=== PATIENT | female | born 1970 | race Caucasian/White ===

== ENCOUNTER 2020-11-01 10:49 | Emergency (ER) | payer OTHER ==
[2020-11-01 10:55] VITALS: RESP 18; TEMP 98.3
[2020-11-01] MEDS ORDERED: ORPHENADRINE 30 MG/ML 2 ML VIAL IM STA (11:08)
[2020-11-01] MEDS ORDERED: KETOROLAC 15 MG/ML 1 ML VIAL IM STA (11:08)
--- NOTE | 2020-11-01 11:13 | ED ---
General Adult HPI - General Chief complaint: Back Pain/Injury Stated complaint: Back injury Time Seen by Provider: 11/01/20 10:57 Source: patient, RN notes reviewed Mode of arrival: ambulatory Limitations: no limitations - History of Present Illness Initial comments: 50-year-old female presents to the emergency room for upper back pain. She reports this is been ongoing for about 5 days. Patient reports that she was doing drywall last week when it started. States she was reaching up and felt a sudden pain in her back. Patient reports she has had this pain "a million times" but usually only lasts for 2-3 days. She reports this time it has lasted for 5 days. Patient has been applying warm compresses. She has also taken some Motrin and Tylenol however has not taken this regularly. She reports that movement and bending makes this pain worse. She denies any pain radiating to her chest or abdomen or arms.Patient has no other complaints at this time including shortness of breath, chest pain, abdominal pain, nausea or vomiting, headache, or visual changes. - Related Data Previous Rx's Medication Instructions Recorded Lidocaine 5% Patch [Lidoderm 5% 1 patch TOPICAL DAILY PRN 5 Days 11/01/20 Patch] #5 patch Allergies Allergy/AdvReac Type Severity Reaction Status Date / Time No Known Allergies Allergy Verified 11/01/20 12:00 Review of Systems ROS Statement: Those systems with pertinent positive or pertinent negative responses have been documented in the HPI. ROS Other: All systems not noted in ROS Statement are negative. Past Medical History Past Medical History: No Reported History History of Any Multi-Drug Resistant Organisms: None Reported Past Surgical History: No Surgical Hx Reported Past Psychological History: No Psychological Hx Reported Smoking Status: Current every day smoker Past Alcohol Use History: Occasional Past Drug Use History: None Reported General Exam Limitations: no limitations General appearance: alert, in no apparent distress Head exam: Present: atraumatic, normocephalic, normal inspection Eye exam: Present: normal appearance, PERRL, EOMI. Absent: scleral icterus, conjunctival injection, periorbital swelling ENT exam: Present: normal exam, mucous membranes moist Neck exam: Present: normal inspection, full ROM. Absent: tenderness, meningismus, lymphadenopathy Respiratory exam: Present: normal lung sounds bilaterally. Absent: respiratory distress, wheezes, rales, rhonchi, stridor Cardiovascular Exam: Present: regular rate, normal rhythm, normal heart sounds. Absent: systolic murmur, diastolic murmur, rubs, gallop, clicks GI/Abdominal exam: Present: soft, normal bowel sounds. Absent: distended, tenderness, guarding, rebound, rigid Extremities exam: Present: other (radial pulses 2+ and equal bilaterally) Back exam: Present: vertebral tenderness (mild thoracic spine tenderness and pasaspinal tenderness worse on the right). Absent: CVA tenderness (R), CVA tenderness (L) Course Vital Signs 11/01/20 11/01/20 10:51 12:13 Temperature 98.3 F Pulse Rate 90 78 Respiratory 18 18 Rate Blood Pressure 123/83 123/88 O2 Sat by Pulse 97 100 Oximetry EKG Findings - EKG Comments: EKG Findings:: Normal sinus rhythm, ventricular rate 76, KS interval 140, QTC 409 Medical Decision Making - Medical Decision Making Vitals are stable. Patient has normal blood pressure. Pain is consistent with previous episodes of upper back pain. Pain is traumatic from reaching for drywall. It is reproducible on exam with tenderness and worsening pain with movement. She has no associated chest or abdominal pain. No other associated symptoms. Chest x-ray shows no acute cardiopulmonary process. EKG is nonischemic. He was given pain medication and did have some improvement in pain. She was offered additional pain medication but declined. She will be discharged home with Tylenol 3. I recommended she follow up with orthopedics. She should return here for any worsening symptoms.I discussed this case with attending Dr. Houser who agrees with this assessment and treatment plan. Disposition Clinical Impression: Mechanical back pain Disposition: HOME SELF-CARE Condition: Good Instructions (If sedation given, give patient instructions): Back Pain (ED) Additional Instructions: Please take Motrin and Tylenol for pain. You may alternate these every 3 hours. If pain is severe take Tylenol 3. Do not drive or operate machinery while taking this. Follow up with your doctor or orthopedics in one to 2 days. If you have any worsening symptoms return to the emergency room. Prescriptions: Lidocaine 5% Patch [Lidoderm 5% Patch] 1 patch TOPICAL DAILY PRN 5 Days #5 patch PRN Reason: Pain Is patient prescribed a controlled substance at d/c from ED?: No Referrals: Mason Zhu MD [STAFF PHYSICIAN] - 1-2 days Time of Disposition: 12:36
--- NOTE | 2020-11-01 11:47 | XR ---
EXAMINATION TYPE: XR chest 2V DATE OF EXAM: 11/01/2020 COMPARISON: NONE HISTORY: Back strain and pain after injury. TECHNIQUE: Frontal and lateral views of the chest are obtained. FINDINGS: There is no focal air space opacity, pleural effusion, or pneumothorax seen. The cardiac silhouette size is within normal limits. The osseous structures are intact. IMPRESSION: No acute cardiopulmonary process.
[2020-11-01 12:14] VITALS: BP 123/88; PULSE 78
[2020-11-01] MEDS ORDERED: ACET/COD 300 MG/30 MG STARTER PACK 6 TAB BTL PO STA (12:37)
== END 2020-11-01 12:46 | disposition home or self-care (01) ==
LOC: EC 10:49
DX: M54.9 Dorsalgia, unspecified (principal); F17.200 Nicotine dependence, unspecified, uncomplicated
CPT/HCPCS: 71046; 93005; 96372; 99283

== ENCOUNTER 2021-06-22 16:23 | Emergency (ER) | payer OTHER ==
[2021-06-22 16:39] VITALS: RESP 18; TEMP 97.8
[2021-06-22 17:20] LABS: Appearance,Urine Clear (Clear); Bacteria,Urine Rare /hpf; Bilirubin,Urine Negative (Negative); Blood,Urine Negative (Negative); Color,Urine Yellow; Glucose,Urine (UA) Negative (Negative); Hyaline Casts,Urine 3 /lpf (0-2); Ketones,Urine 2+ (Negative); Leukocyte Esterase,Urine Small (Negative); Mucus,Urine Moderate /hpf; Nitrite,Urine Negative (Negative); PH, Urine 5.5 (5.0-8.0); Protein,Urine Trace (Negative); RBC,Urine 6 /hpf (0-5); Specific Gravity,Urine 1.028 (1.001-1.035); Squamous Epithelial Cell,Urine 3 /hpf (0-4); WBC,Urine 3 /hpf (0-5)
[2021-06-22] MEDS: SODIUM CHLORIDE 0.9% 1,000 ML IV ONE (17:44)
[2021-06-22] MEDS: KETOROLAC 15 MG/ML 1 ML VIAL IVP STA (17:46)
[2021-06-22] MEDS: ONDANSETRON 4 MG/2 ML VIAL IVP STA (17:47)
[2021-06-22 18:35] LABS: ALT 14 U/L (4-34); AST 28 U/L (14-36); African American GFR (CKD) >90 (>60 ml/min/1.73 sqM); Albumin 4.3 g/dL (3.5-5.0); Alkaline Phosphatase 136 U/L (38-126); Anion Gap 10 mmol/L; Blood Urea Nitrogen 22 mg/dL (7-17); Carbon Dioxide 21 mmol/L (22-30); Chloride 104 mmol/L (98-107); Glucose 86 mg/dL (74-99); Lipase 82 U/L (23-300); Non-African American GFR(CKD) >90 (>60 ml/min/1.73 sqM); Potassium 4.6 mmol/L (3.5-5.1); Sodium 135 mmol/L (137-145); Total Bilirubin 0.5 mg/dL (0.2-1.3); Total Protein 7.1 g/dL (6.3-8.2)
[2021-06-22 18:41] LABS: Basophils # (A) 0.1 k/uL (0-0.2); Basophils % (A) 1 %; Eosinophils # (A) 0.4 k/uL (0-0.7); Eosinophils % (A) 4 %; HCT 42.2 % (34.0-46.0); HGB 14.5 gm/dL (11.4-16.0); Lymphocytes # (A) 1.1 k/uL (1.0-4.8); Lymphocytes % (A) 13 %; MCH 35.2 pg (25.0-35.0); MCHC 34.2 g/dL (31.0-37.0); MCV 102.7 fL (80.0-100.0); Macrocytosis Slight; Mean Platelet Volume 7.8; Monocytes # (A) 0.4 k/uL (0-1.0); Monocytes % (A) 4 %; Neutrophils # (A) 6.5 k/uL (1.3-7.7); Neutrophils % (A) 76 %; Platelet Count 380 k/uL (150-450); RBC 4.11 m/uL (3.80-5.40); RDW 13.8 % (11.5-15.5); WBC 8.5 k/uL (3.8-10.6)
--- NOTE | 2021-06-22 19:07 | US ---
EXAMINATION TYPE: US gallbladder DATE OF EXAM: 06/22/2021 COMPARISON: NONE CLINICAL HISTORY: ruq ab pain. EXAM MEASUREMENTS: Liver Length: 16.0 cm Gallbladder Wall: 0.2 cm CBD: 0.4 cm Right Kidney: 10.7 x 4.7 x 5.3 cm Pancreas: wnl Liver: wnl Gallbladder: wnl Evidence for sonographic Wilson's sign: No CBD: wnl Right Kidney: No hydronephrosis or masses seen IMPRESSION: Negative exam. No gallstones or dilated ducts.
[2021-06-22 19:14] VITALS: BP 116/78; PULSE 61
--- NOTE | 2021-06-22 19:26 | ED ---
Abdominal Pain HPI - General Chief Complaint: Abdominal Pain Stated Complaint: abd pain Source: patient Mode of arrival: ambulatory Limitations: no limitations - History of Present Illness Initial Comments: Patient is a 51-year-old female who presents emergency Department with reported abdominal pain. Patient states the pain has been going on for the past couple of weeks. It is located in the epigastric region and appears to be exacerbated by food intake. Describes it as a burning sensation. She has had associated nausea and vomiting. Reports it has been difficult to hold down any food or water, especially today. Denies any previous history of similar. No bloody em esis. Denies fevers or chills. No cough, shortness of breath or exposure to Covid. No previous abdominal surgeries. Denies eating any tainted foods. No sick contacts with similar symptoms. Denies any chest pain. No diarrhea, constipation, black or bloody stools. No changes in her urination to include dysuria, hematuria or difficulty voiding. Continues to have menstrual cycles. No abnormal vaginal bleeding or discharge. No concern for . She took Aleve for her pain. Reports that she frequently takes [id number] NSAIDs for pain. Denies alcohol use. No history of peptic ulcer disease. No other alleviating, precipitating or modifying factors - Related Data Previous Rx's Medication Instructions Recorded Lidocaine 5% Patch [Lidoderm 5% 1 patch TOPICAL DAILY PRN 5 Days 11/01/20 Patch] #5 patch Omeprazole [PriLOSEC] 20 mg PO AC-BRKFST #30 cap 06/22/21 Ondansetron Odt [Zofran Odt] 4 mg PO Q8HR PRN #15 tab 06/22/21 Sucralfate [Carafate] 1 gm PO ACHS #56 tablet 06/22/21 Allergies Allergy/AdvReac Type Severity Reaction Status Date / Time No Known Allergies Allergy Verified 06/22/21 16:38 Review of Systems ROS Statement: Those systems with pertinent positive or pertinent negative responses have been documented in the HPI. ROS Other: All systems not noted in ROS Statement are negative. Past Medical History Past Medical History: No Reported History History of Any Multi-Drug Resistant Organisms: None Reported Past Surgical History: No Surgical Hx Reported Past Psychological History: No Psychological Hx Reported Smoking Status: Current every day smoker Past Alcohol Use History: Occasional Past Drug Use History: None Reported General Exam Limitations: no limitations Course Vital Signs 06/22/21 06/22/21 06/22/21 16:26 17:49 19:00 Temperature 97.8 F Pulse Rate 75 65 61 Respiratory 18 18 18 Rate Blood Pressure 113/73 103/71 116/78 O2 Sat by Pulse 100 99 100 Oximetry Medical Decision Making - Medical Decision Making Upon arrival patient is placed in room 23. A thorough history and physical exam is performed. IV is established and the patient is given 1 here bolus of normal saline, 4 mg of Zofran and 15 mg of Toradol. Laboratory studies are conducted an ultrasound is performed. Laboratory studies are reviewed and results are discussed with the patient. Gallbladder ultrasound is negative for signs of cholecystitis or cholelithiasis. I did discuss diagnosis, differential and treatment options. I will start the patient on Prilosec, Carafate and Zofran. Patient is to take the medications as directed and follow-up with her primary care doctor. The patient does not have a primary care doctor and therefore I do give her several recommendations. I also recommended that she call her insurance company for referrals. Patient may benefit from a HIDA scan or an EGD. Recommended that she stop any NSAID intake or alcohol intake. Return to the emergency department for any new or worsening symptoms per patient agree to this and she is discharged home in stable condition - Lab Data Result diagrams: 06/22/21 17:48 06/22/21 17:48 Lab Results 06/22/21 06/22/21 06/22/21 Range/Units 17:02 17:02 17:48 WBC 8.5 (3.8-10.6) k/uL RBC 4.11 (3.80-5.40) m/uL Hgb 14.5 (11.4-16.0) gm/dL Hct 42.2 (34.0-46.0) % MCV 102.7 H (80.0-100.0) fL MCH 35.2 H (25.0-35.0) pg MCHC 34.2 (31.0-37.0) g/dL RDW 13.8 (11.5-15.5) % Plt Count 380 (150-450) k/uL MPV 7.8 Neutrophils % 76 % Lymphocytes % 13 % Monocytes % 4 % Eosinophils % 4 % Basophils % 1 % Neutrophils # 6.5 (1.3-7.7) k/uL Lymphocytes # 1.1 (1.0-4.8) k/uL Monocytes # 0.4 (0-1.0) k/uL Eosinophils # 0.4 (0-0.7) k/uL Basophils # 0.1 (0-0.2) k/uL Macrocytosis Slight Sodium (137-145) mmol/L Potassium (3.5-5.1) mmol/L Chloride (98-107) mmol/L Carbon Dioxide (22-30) mmol/L Anion Gap mmol/L BUN (7-17) mg/dL Creatinine (0.52-1.04) mg/dL Est GFR (CKD-EPI)AfAm (>60 ml/min/1.73 sqM) Est GFR (CKD-EPI)NonAf (>60 ml/min/1.73 sqM) Glucose (74-99) mg/dL Plasma Lactic Acid [place] (0.7-2.0) mmol/L Calcium (8.4-10.2) mg/dL Total Bilirubin (0.2-1.3) mg/dL AST (14-36) U/L ALT (4-34) U/L Alkaline Phosphatase (38-126) U/L Total Protein (6.3-8.2) g/dL Albumin (3.5-5.0) g/dL Lipase (23-300) U/L Urine Color Yellow Urine Appearance Clear (Clear) Urine pH 5.5 (5.0-8.0) Ur Specific [place] 1.028 (1.001-1.035) Urine Protein Trace H (Negative) Urine Glucose (UA) Negative (Negative) Urine Ketones 2+ H (Negative) Urine Blood Negative (Negative) Urine Nitrite Negative (Negative) Urine Bilirubin Negative (Negative) Urine Urobilinogen 2.0 (<2.0) mg/dL Ur Leukocyte Esterase Small H (Negative) Urine RBC 6 H (0-5) /hpf Urine WBC 3 (0-5) /hpf Ur Squamous Epith Cells 3 (0-4) /hpf Urine Bacteria Rare H (None) /hpf Hyaline Casts 3 H (0-2) /lpf Urine Mucus Moderate H (None) /hpf Urine HCG, Qual Not Detected (Not Detectd) 06/22/21 06/22/21 Range/Units 17:48 17:48 WBC (3.8-10.6) k/uL RBC (3.80-5.40) m/uL Hgb (11.4-16.0) gm/dL Hct (34.0-46.0) % MCV (80.0-100.0) fL MCH (25.0-35.0) pg MCHC (31.0-37.0) g/dL RDW (11.5-15.5) % Plt Count (150-450) k/uL MPV Neutrophils % % Lymphocytes % % Monocytes % % Eosinophils % % Basophils % % Neutrophils # (1.3-7.7) k/uL Lymphocytes # (1.0-4.8) k/uL Monocytes # (0-1.0) k/uL Eosinophils # (0-0.7) k/uL Basophils # (0-0.2) k/uL Macrocytosis Sodium 135 L (137-145) mmol/L Potassium 4.6 (3.5-5.1) mmol/L Chloride 104 (98-107) mmol/L Carbon Dioxide 21 L (22-30) mmol/L Anion Gap 10 mmol/L BUN 22 H (7-17) mg/dL Creatinine 0.62 (0.52-1.04) mg/dL Est GFR (CKD-EPI)AfAm >90 (>60 ml/min/1.73 sqM) Est GFR (CKD-EPI)NonAf >90 (>60 ml/min/1.73 sqM) Glucose 86 (74-99) mg/dL Plasma Lactic Acid [place] 1.0 (0.7-2.0) mmol/L Calcium 10.0 (8.4-10.2) mg/dL Total Bilirubin 0.5 (0.2-1.3) mg/dL AST 28 (14-36) U/L ALT 14 (4-34) U/L Alkaline Phosphatase 136 H (38-126) U/L Total Protein 7.1 (6.3-8.2) g/dL Albumin 4.3 (3.5-5.0) g/dL Lipase 82 (23-300) U/L Urine Color Urine Appearance (Clear) Urine pH (5.0-8.0) Ur Specific [place] (1.001-1.035) Urine Protein (Negative) Urine Glucose (UA) (Negative) Urine Ketones (Negative) Urine Blood (Negative) Urine Nitrite (Negative) Urine Bilirubin (Negative) Urine Urobilinogen (<2.0) mg/dL Ur Leukocyte Esterase (Negative) Urine RBC (0-5) /hpf Urine WBC (0-5) /hpf Ur Squamous Epith Cells (0-4) /hpf Urine Bacteria (None) /hpf Hyaline Casts (0-2) /lpf Urine Mucus (None) /hpf Urine HCG, Qual (Not Detectd) Disposition Clinical Impression: Epigastric pain Disposition: HOME SELF-CARE Condition: Stable Instructions (If sedation given, give patient instructions): Epigastric Pain (ED) Additional Instructions: Please stay away from alcohol and NSAIDS (aleve, advil, motrin). Do not eat any foods heavy in fats. Take the prescriptions as directed. Follow up with your PCP for re-evaluation - you may benefit from an EGD and HIDA scan. Return to the ED for any new or worsening symptoms. Prescriptions: Sucralfate [Carafate] 1 gm PO ACHS #56 tablet Omeprazole [PriLOSEC] 20 mg PO AC-BRKFST #30 cap Ondansetron Odt [Zofran Odt] 4 mg PO Q8HR PRN #15 tab PRN Reason: Nausea Is patient prescribed a controlled substance at d/c from ED?: No Referrals: Saeid Griffin [STAFF PHYSICIAN] - 1-2 days Marlen Rene MD [STAFF PHYSICIAN] - 1-2 days Time of Disposition: 19:26
== END 2021-06-22 19:59 | disposition home or self-care (01) ==
LOC: EC 16:23
DX: R10.13 Epigastric pain (principal); R11.2 Nausea with vomiting, unspecified; F17.200 Nicotine dependence, unspecified, uncomplicated
CPT/HCPCS: 36415; 76705; 80053; 81001; 81025; 83605; 83690; 85025; 96361; 96374; 96375; 99284